=== PATIENT | male | born 1970 | race Caucasian/White ===

== ENCOUNTER 2016-12-27 12:37 | Emergency (ER) | payer MEDICAID, OTHER ==
[~2016-12-27] VITALS: Ht 162.6 cm; Wt 70.0 kg
[2016-12-27 12:59] VITALS: Ht 162.6 cm; Wt 70.0 kg
--- NOTE | 2016-12-27 14:09 | ERD ---
ER Documentation Chief Complaint Date/Time DATE: 12/27/16 TIME: 14:06 Chief Complaint FOREIGN OBJECT IN BOTH EARS HPI 46-year-old male. language interpreter use. The patient is convinced that he has a foreign object in bilateral ears. He states that an insect, mosquito, hit him in his left ear several weeks ago. He states that the eczema patch and crawled through to the other side of his ear. He states that he went to an urgent care who states that he needs to go see a neurologist. He denies any fevers or chills, no headaches no vision changes. ROS All systems reviewed and are negative except as per history of present illness. FmHx Family History: No diabetes Physical Exam Vitals Vital Signs Date Time Temp Pulse Resp B/P Pulse Ox O2 Delivery O2 Flow Rate FiO2 12/27/16 12:59 98.5 82 19 119/83 96 Physical Exam General: Well developed, well nourished, no acute distress Head: Normocephalic, atraumatic. Eyes: Pupils equally reactive, EOM intact ENT: Moist mucous membranes, tympanic membrane is easily visualized bilaterally without evidence of foreign body Neck: Supple, no lymphadenopathy Respiratory: Lungs clear bilaterally, no distress Cardiovascular: RRR, no murmurs, rubs, or gallops Abdominal: Soft, non-tender, non-distended, no peritoneal signs : Deferred MSK: No edema, no unilateral swelling, 5/5 strength Neurologic: Alert and oriented, moving all extremities, normal speech, no focal weakness, no cerebellar signs Skin: No rash Psych: Delusions of parasitosis Procedures/MDM The patient has a fixed delusion of parasitosis. There are no signs or symptoms of insect infestation. No evidence of tympanic membrane foreign body or ear canal foreign body. I attempted multiple times to explain to the patient that he does not have a foreign body. The patient has a fixed delusion that would benefit from outpatient primary care, psychiatric and neurology follow-up. No indication for CT brain. Low concern for acute intracranial process. No evidence of alcohol withdrawal. We discussed follow up with the patient's primary care doctor within 24 to 48 hours as needed. We also discussed return to the emergency room for worsening symptoms or worsening condition. Outpatient referral: Primary care, neurology, psychiatry Departure Diagnosis: Primary Impression: Delusions of parasitosis Condition: Stable Patient Instructions: Understanding Delusional Disorders Ref[facility]: [facility] Usted se styles hecho un examen mdico de control que le indica que no est en hardeep condicin que requiera tratamiento urgente en el Departamento de Emergencia. Un estudio ms profundo y el tratamiento de alvarado condicin pueden esperar sin ningn riesgo hasta que usted sea atendida/o en el consultorio de alvarado mdico o hardeep cl kareem. Es responsabilidad suya arreglar hardeep todd para el seguimiento del samantha. MANEJO DE CONDICIONES NO URGENTES EN EL FUTURO 1) Si usted tiene un mdico de atencin primaria: Usted debera llamar a alvarado mdico de atencin primaria antes de venir al departamento de emergencia. Despus de las horas de consultorio, alvarado doctor o alvarado asociado/a est disponible por telfono. El mdico o enfermero de emilie en el servicio telefnico puede asesorarle por hu medio para atender el problema, o samantha contrario se puede programar hardeep todd. 2) Si usted no tiene un mdico de atencin primaria: Llame al mdico o clnica de referencia que aparece abajo car las horas de consultorio para hacer hardeep todd para que le vean. CLINICAS: [facility] [phone] [facility] [phone] [facility] [phone] [facility]. [facility] [phone] [place] [phone] [facility]. [phone] [address] [facility] () Usted se styles hecho un examen mdico de control que le indica que no est en hardeep condicin que requiera tratamiento urgente en el Departamento de Emergencia. Un estudio ms profundo y el tratamiento de alvarado condicin pueden esperar sin ningn riesgo hasta que usted sea atendida/o en el consultorio de alvarado mdico o hardeep cl kareem. Es responsabilidad suya arreglar hardeep todd para el seguimiento del samantha. MANEJO DE CONDICIONES NO URGENTES EN EL FUTURO 1) Si usted tiene un mdico de atencin primaria: Usted debera llamar a alvarado mdico de atencin primaria antes de venir al departamento de emergencia. Despus de las horas de consultorio, alvarado doctor o alvarado asociado/a est disponible por telfono. El mdico o enfermero de emilie en el servicio telefnico puede asesorarle por hu medio para atender el problema, o samantha contrario se puede programar hardeep todd. 2) Si usted no tiene un mdico de atencin primaria: Llame al mdico o condado institucions de referencia que aparece abajo car las horas de consultorio para hacer hardeep todd para que le vean. SI USTED NO PUEDE PAGAR PARA CYNTHIA UN MEDICO puede ir a: [facility] [address] [place] [address] [facility] [address] [place] [address] [facility] [address] [place] [address] [facility] [address] [place], [place] [id number] Additional Instructions: You should follow up with a PMD and may benefit from referral to a neurologist or pyschiatrist. Return for headaches, fevers. Llame al doctor nombrado abajo (Referral Sources) MAANA y dahlia hardeep TODD PARA DENTRO DE HARDEEP SEMANA. Dgale a la secretaria que nosotros le instruimos hacer esta todd.Avise o llame si alvarado condicin se empeora antes de la todd. ONDINA NERI MD Dec 27, 2016 14:09
== END 2016-12-27 14:18 | disposition home or self-care (01) ==
LOC: FTE 12:37
DX: F22 Delusional disorders (principal)
CPT/HCPCS: 99282